=== PATIENT | female | born 1990 | race Caucasian/White ===

== ENCOUNTER 2023-06-19 15:14 | Emergency (ER) | payer OTHER, SELFPAY ==
[2023-06-19 15:31] VITALS: BP 116/74; PULSE 90; RESP 18; TEMP 36.7; O2SAT 99; BMI 34.0
--- NOTE | 2023-06-19 15:43 | CT_ITS ---
The [address] [address] Patient Name: JUSTA ELY MRN: [id number] date: 1990 Sex: F Assigned Patient Location: ER Current Patient Location: ER Accession/Order Number: [id number] Exam Date: 06/19/2023 16:25 Report Date: 06/19/2023 16:56 At the request of: AARON URIBE Procedure: CT abdomen pelvis w con CT ABDOMEN/PELVIS WITH IV CONTRAST. INDICATION: Right sided abdominal pain. COMPARISON: There are no other studies available for comparison. TECHNIQUE: Contiguous axial images were obtained from the lung bases to the pelvic floor following the intravenous administration of contrast. Coronal and sagittal reformations are provided. FINDINGS: LOWER LUNGS: Clear. LIVER/BILIARY TREE: No mass. No intrahepatic ductal dilatation. GALLBLADDER: No significant gallbladder wall thickening. No radiopaque stone. CBD: Normal CBD. SPLEEN: Normal in size. PANCREAS: No acute findings. No peripancreatic fluid or inflammation. No pancreatic duct dilatation. No discrete mass. ADRENALS: Normal. KIDNEYS: No hydronephrosis. Is a nonobstructing 3 mm right renal stone. STOMACH AND BOWEL: Stomach is unremarkable. No dilated bowel loops. No bowel wall thickening. APPENDIX: Normal appendix. PERITONEAL CAVITY: No fluid. No fat stranding. ABDOMINAL WALL: No subcutaneous stranding. No subcutaneous fluid collection. LYMPH NODES: No mesenteric or retroperitoneal lymphadenopathy by CT criteria. ABDOMINAL AORTA: No aneurysm. PELVIS: No acute abnormality. MUSCULOSKELETAL: No acute osseous abnormality. CT/CT abdomen pelvis w con IMPRESSION: 1. No acute abnormality in the abdomen or pelvis. Normal appendix. 2. Right nephrolithiasis. No obstructive uropathy. Electronically authenticated by: ANGIE GARZON Date: 06/19/2023 16:56
--- NOTE | 2023-06-19 15:44 | ED.ABDPAIN1 ---
HPI - Abdominal Pain General Chief Complaint: Abdominal Pain Stated Complaint: Abdominal Pain Time Seen by Provider: 06/19/23 15:29 Source: patient Mode of arrival: walk-in Limitations: no limitations History of Present Illness HPI narrative: Patient is a 32-year-old female who presents to the emergency department for increasing pain in the right upper quadrant that she noticed today. 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 She states that throughout the day today she has had worsened pain to the right upper quadrant associated with vomiting. She had an upper GI last week and is scheduled to see a surgeon for her gallbladder next week. She is not currently taking any medications for this pain. She is not concerned for . She has had a previous laparoscopic procedure years ago on her uterus but no other abdominal surgeries. She describes a burning pain. No urinary symptoms. States the pain radiates to her back. She states she was not feeling well all day, she had a chicken salad sandwich from the cafeteria 3 hours ago for lunch. She does not believe this made her pain worse. Related Data Previous Rx's Medication Instructions Recorded hyoscyamine sulfate 0.125 mg 0.125 mg PO Q6H PRN abdominal pain 06/19/23 tablet (Levsin) #12 tabs ondansetron 4 mg disintegrating 4 mg PO Q6H PRN nausea and 06/19/23 tablet vomiting #12 tabs pantoprazole 40 mg tablet,delayed 40 mg PO DAILY #7 tabs 06/19/23 release (Protonix) Allergies Allergy/AdvReac Type Severity Reaction Status Date / Time No Known Drug Allergies Allergy Verified 06/19/23 15:31 Review of Systems ROS Constitutional Denies: fever or chills Ears, nose, mouth, and throat Denies: throat pain or nasal congestion Cardiovascular Denies: chest pain Respiratory Denies: shortness of breath or cough Gastrointestinal Reports: abdominal pain, nausea and vomiting; Denies: diarrhea Genitourinary Denies: painful urination Musculoskeletal Reports: back pain; Denies: neck pain Integumentary/Breast Denies: rash Neurological Denies: headache Hematologic/Lymphatic Denies: easy bruising or easy bleeding PFSH PFSH Social History Smoking status: Never smoker Exam Narrative Exam Narrative: Gen.: Awake, alert, in no distress Head: Normocephalic, atraumatic ENT: Moist mucous membranes Respiratory: No respiratory distress Gastrointestinal: Abdomen is soft, nondistended and Tender to palpation in the right upper quadrant with voluntary guarding Extremities: Moves extremities equally, no injuries noted Psych: Normal mood and affect Neuro: No focal neuro deficit Skin: Warm, dry, intact Constitutional Vital Signs, click to edit/add: Last Vital Signs Temp 98.0 F 06/19/23 15:31 Pulse 80 06/19/23 16:56 Resp 18 06/19/23 16:56 BP 124/70 06/19/23 16:56 Pulse Ox 98 06/19/23 16:56 O2 Del Method Room Air 06/19/23 15:31 Course Vital Signs Vital signs: Vital Signs Temperature 98.0 F 06/19/23 15:31 Pulse Rate 90 06/19/23 15:31 Respiratory Rate 18 06/19/23 15:31 Blood Pressure 116/74 06/19/23 15:31 Pulse Oximetry 99 06/19/23 15:31 Oxygen Delivery Method Room Air 06/19/23 15:31 Temperature 98.0 F 06/19/23 15:31 Pulse Rate 80 06/19/23 16:56 Respiratory Rate 18 06/19/23 16:56 Blood Pressure 124/70 06/19/23 16:56 Pulse Oximetry 98 06/19/23 16:56 Oxygen Delivery Method Room Air 06/19/23 15:31 MDM - Abdominal Pain MDM Narrative Medical decision making narrative: Studies within normal limits including lipase and LFTs. Patient sent for CT of the abdomen and pelvis that she ate chicken salad just a few hours ago and is not a good candidate for right upper quadrant ultrasound. CT shows no evidence of acute process in the abdomen. Patient had improvement of pain after IV fluids, 0.5 mg IV Dilaudid, Protonix, Zofran. She had no episodes of emesis in the ER and is resting comfortably on reevaluation with stable vital signs. Abdomen is soft and nonsurgical. Patient has an appointment tomorrow with general surgery at 9 AM. She is encouraged to keep this appointment and will be placed on Levsin, Protonix, Zofran for home. Medical Records Attestation: I reviewed the patient's medical records. Lab Data Attestation: I reviewed the patient's lab results. Labs: Lab Results 06/19/23 06/19/23 Range/Units 15:46 16:40 WBC 11.1 H (4.0-11.0) 10^3/uL RBC 4.62 (4.20-5.40) 10^6/uL Hgb 12.7 (12.0-16.0) g/dL Hct 38.6 (36.0-48.0) % MCV 83.5 (81.0-99.0) fL MCH 27.5 (26.7-34.0) pg MCHC 32.9 (29.9-35.2) g/dL RDW 15.9 H (11.0-15.0) % Plt Count 411 (150-450) 10^3/uL MPV 8.4 L (9.5-13.5) fL Neut % (Auto) 60.4 (43.0-75.0) % Lymph % (Auto) 25.3 (20.5-60.0) % [place] % (Auto) 10.3 (1.7-12.0) % Eos % (Auto) 2.3 (0.9-7.0) % Baso % (Auto) 0.8 (0.2-2.0) % Neut # (Auto) 6.7 H (1.4-6.5) 10^3/uL Lymph # (Auto) 2.8 (1.2-3.8) 10^3/uL [place] # (Auto) 1.2 H (0.3-0.8) 10^3/uL Eos # (Auto) 0.3 (0.0-0.7) 10^3/uL Baso # (Auto) 0.1 (0.0-0.1) 10^3/uL Abs Immat Gran (auto) 0.10 H (0.00-0.03) 10^3/uL Imm/Tot Granulo (auto) 0.9 H (0.0-0.5) % Sodium 139 (136-145) mmol/L Potassium 3.6 (3.5-5.1) mmol/L Chloride 98 (98-107) mmol/L Carbon Dioxide 30.2 (21.0-32.0) mmol/L Anion Gap 14.4 BUN 13.0 (7.0-18.0) mg/dL Creatinine 0.67 (0.55-1.02) mg/dL Est GFR ( Amer) >60 (>=60) Est GFR (Non-Af Amer) >60 (>=60) BUN/Creatinine Ratio 19.4 Glucose 96 (74-106) mg/dL Calcium 9.5 (8.5-10.1) mg/dL Total Bilirubin 0.3 (0.2-1.0) mg/dL AST 23 (15-37) U/L ALT 41 (14-59) U/L Alkaline Phosphatase 103 (46-116) U/L Total Protein 8.2 (6.4-8.2) g/dL Albumin 4.0 (3.4-5.0) g/dL Globulin 4.2 g/dL Albumin/Globulin Ratio 1.0 Lipase 23.0 (16.0-77.0) U/L Serum HCG, Qual Negative (NEGATIVE) Urine Color Lt. yellow (YELLOW) Urine Clarity Clear (CLEAR) Urine pH 5.5 (5.0-9.0) Ur Specific [place] <=1.005 A (1.005-1.025) Urine Protein Negative (NEG/TRACE) mg/dL Urine Glucose (UA) Negative (NEGATIVE) mg/dL Urine Ketones Negative (NEGATIVE) mg/dL Urine Occult Blood Negative (NEGATIVE) Urine Nitrite Negative (NEGATIVE) Urine Bilirubin Negative (NEGATIVE) Urine Urobilinogen 0.2 (0.2-1.0) EU/dL Ur Leukocyte Esterase Negative (NEGATIVE) Imaging Data CT scan - abdomen: Radiologist's impression: ITS Impressions Abdomen/Pelvis CT 06/19/23 15:43 IMPRESSION: 1. No acute abnormality in the abdomen or pelvis. Normal appendix. 2. Right nephrolithiasis. No obstructive uropathy. Electronically authenticated by: ANGIE GARZON Date: 06/19/2023 16:56 Discharge Plan Discharge Chief Complaint: Abdominal Pain Clinical Impression: Abdominal pain Patient Disposition: Home, Self-Care Time of Disposition Decision: 17:12 Condition: Good Prescriptions / Home Meds: New pantoprazole [Protonix] 40 mg tablet,delayed release (DR/EC) 40 mg PO DAILY Qty: 7 0RF hyoscyamine sulfate [Levsin] 0.125 mg tablet 0.125 mg PO Q6H PRN (Reason: abdominal pain) Qty: 12 0RF ondansetron 4 mg tablet,disintegrating 4 mg PO Q6H PRN (Reason: nausea and vomiting) Qty: 12 0RF Instructions: Acute Abdominal Pain (ED) Stand Alone Forms: Portal Instructions Referrals: Physician,Non-Staff, MD [Primary Care Provider] - 1 week
[2023-06-19] MEDS: 0.9 % SODIUM CHLORIDE 1,000 ML 999 ML IV (15:48)
[2023-06-19] MEDS: PANTOPRAZOLE SODIUM 40 MG VIAL IV (15:50)
[2023-06-19] MEDS: ONDANSETRON PF 4 MG/2 ML VIAL IV (15:50)
[2023-06-19] MEDS: HYDROMORPHONE HCL 0.5 MG/0.5 ML SYRINGE IV (15:50)
[2023-06-19 15:59] LABS: Basophils Absolute Auto 0.1 10^3/uL (0.0-0.1); Basophils Percent Auto 0.8 % (0.2-2.0); Eosinophils Absolute Auto 0.3 10^3/uL (0.0-0.7); Eosinophils Percent Auto 2.3 % (0.9-7.0); Hematocrit 38.6 % (36.0-48.0); Hemoglobin 12.7 g/dL (12.0-16.0); Immature Granulocytes Pct Auto 0.9 % (0.0-0.5); Lymphocytes Absolute Auto 2.8 10^3/uL (1.2-3.8); Lymphocytes Percent Auto 25.3 % (20.5-60.0); Mean Corpuscular HGB Conc 32.9 g/dL (29.9-35.2); Mean Corpuscular Hemoglobin 27.5 pg (26.7-34.0); Mean Corpuscular Volume 83.5 fL (81.0-99.0); Mean Platelet Volume 8.4 fL (9.5-13.5); Monocytes Absolute Auto 1.2 10^3/uL (0.3-0.8); Monocytes Percent Auto 10.3 % (1.7-12.0); Neutrophils Absolute Auto 6.7 10^3/uL (1.4-6.5); Neutrophils Percent Auto 60.4 % (43.0-75.0); Platelet Count 411 10^3/uL (150-450); Red Blood Count 4.62 10^6/uL (4.20-5.40); Red Cell Distribution Width 15.9 % (11.0-15.0); White Blood Count 11.1 10^3/uL (4.0-11.0)
[2023-06-19 16:06] LABS: HCG Qualitative NEGATIVE (NEGATIVE)
[2023-06-19 16:10] LABS: Alanine Aminotransferase 41 U/L (14-59); Alkaline Phosphatase 103 U/L (46-116); Anion Gap 14.4; Aspartate Amino Transferase 23 U/L (15-37); BUN Creatinine Ratio 19.4; Bilirubin Total 0.3 mg/dL (0.2-1.0); Calcium 9.5 mg/dL (8.5-10.1); Carbon Dioxide 30.2 mmol/L (21.0-32.0); Chloride 98 mmol/L (98-107); Estimated GFR (African America >60 (>=60); Estimated GFR (Non-African Ame >60 (>=60); Globulin 4.2 g/dL; Glucose 96 mg/dL (74-106); Potassium 3.6 mmol/L (3.5-5.1); Sodium 139 mmol/L (136-145); Total Protein 8.2 g/dL (6.4-8.2)
[2023-06-19 16:53] LABS: Bilirubin Urine NEGATIVE (NEGATIVE); Blood Urine NEGATIVE (NEGATIVE); Clarity Urine CLEAR (CLEAR); Color Urine LT. YELLOW (YELLOW); Glucose Urine UA NEGATIVE (NEGATIVE); Ketones Urine NEGATIVE (NEGATIVE); Leukocyte Esterase Urine NEGATIVE (NEGATIVE); Nitrite Urine NEGATIVE (NEGATIVE); Protein Urine NEGATIVE (NEG/TRACE); Specific Gravity Urine <=1.005 (1.005-1.025); Urobilinogen Urine 0.2 EU/dL (0.2-1.0); pH Urine 5.5 (5.0-9.0)
[2023-06-19 16:56] VITALS: BP 124/70; PULSE 80; RESP 18; O2SAT 98
[2023-06-19 16:58] LABS: Urine Microscopic Indicated NO
[2023-06-19 17:17] VITALS: BP 133/76; PULSE 91; O2SAT 95
== END 2023-06-19 17:18 | disposition home or self-care (01) ==
PROVIDERS: Physician Assistant; Emergency Provider Emergency Medicine
DX: R10.11 Right upper quadrant pain (principal)
CPT/HCPCS: 36415; 74177; 80053; 81003; 83690; 84703; 85025; 96361; 96374; 96375; 99285; J1170; J2405; Q9967